=== PATIENT | female | born 1985 | race American Indian/Alaskan Native ===

== ENCOUNTER 2017-02-08 03:28 | Outpatient (CLI) | payer OTHER ==
[2017-02-08 04:51] VITALS: BP 125/69
[2017-02-08 06:28] LABS: Hematocrit 37.3 % (30.3-42.9); Mean Corpuscular HGB Conc 32 % (30-34); Mean Corpuscular Hemoglobin 31 pg (28-32); Mean Corpuscular Volume 96 fl (79-97); Platelet Count 170 K/mm3 (140-440); Red Blood Count 3.89 M/mm3 (3.65-5.03); Red Cell Distribution Width 15.6 % (13.2-15.2); White Blood Count 9.6 K/mm3 (4.5-11.0)
[2017-02-08 06:36] LABS: Alanine Aminotransferase 21 units/L (7-56); Lactate Dehydrogenase 225 units/L (91-180); Uric Acid 5.2 mg/dL (3.5-7.6)
--- NOTE | 2017-02-08 10:33 | Ultrasound Report ---
BIOPHYSICAL PROFILE: 2 - breathing movements 2 - movements 2 - posture and tone 2 - Qualitative amniotic fluid volume 8 - TOTAL SCORE OF POSSIBLE 8 Heart Rate (bpm) 139 Estimated age 39 weeks 5 days.
== END 2017-02-08 07:08 | disposition home or self-care (01) ==
LOC: TRG 03:28
PROVIDERS: ATTEND Obstetrics & Gynecology
DX: O62.9 Abnormality of forces of labor, unspecified (principal); Z3A.39 39 weeks gestation of pregnancy
CPT/HCPCS: 36415; 76819; 82565; 83615; 84450; 84460; 84550; 85027

== ENCOUNTER 2017-02-15 03:05 | Inpatient (IN) | payer OTHER ==
[2017-02-15] MEDS ORDERED: ZOFRAN IV PRN (03:53)
[2017-02-15] MEDS ORDERED: BRETHINE SUB-Q PRN (03:53)
[2017-02-15] MEDS ORDERED: XYLOCAINE 2% INFILTRATI ONE (03:53)
[2017-02-15] MEDS ORDERED: MINERAL OIL PO PRN (03:53)
[2017-02-15] MEDS ORDERED: ePHEDrine SULFATE IV PRN (03:53)
[2017-02-15] MEDS ORDERED: SUBLIMAZE IV PRN (03:53)
--- NOTE | 2017-02-15 03:53 | History and Physical Report ---
History of Present Illness Date of examination: 02/15/17 (pt presents @ term in active labor) Date of admission: 02/15/17 03:38 History of present illness: EDC Confirmation: 02/10/2017 Gestational Age: 7 3/7 weeks Past History : 2 Term Births: 1 Living Children: 1 # 1 Delivery date: 2006 Weeks Gestation: 37 Delivery type: Delivery location: [facility] Sex: Female weight: 6-7 Comments: no complication Past Medical History: Negative Past Medical History Past Surgical History: Negative Past Surgical History Family History Summary: Other family member - Has No Family History of Uterine Cancer - Entered On: 08/21 Other family member - Has No Family History of Stomach Cancer - Entered On: 08/21 Other family member - Has No Family History of Small Bowel Cancer - Entered On: 08/21/2016 Other family member - Has No Family History of Pancreatic Cancer - Entered On: Other family member - Has No Family History of Ovarvian Cancer - Entered On: Other family member - Has No Family History of Kidney/Urinary Tract Cancer - Entered On: 08/21/2016 Other family member - Has No Family History of DVT/PE on OCP - Entered On: 2016 Other family member - Has No Family History of Colon Cancer - Entered On: 2016 Other family member - Has No Family History of Breast Cancer - Entered On: 2016 Other family member - Has No Family History of Brain Cancer - Entered On: 2016 Other family member - Has No Family History of Biliary Tract Cancer - Entered On : 08/21/2016 General Comments - FH: MGM bone cancer Social History: Patient is single Smoking History: Patient has never smoked. 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 Infection History Hx of STD: none Rash, Viral, or Febrile illness since last LMP? no Varicella/Chicken Pox Status: Previous Disease TB Risk: no Genetic History Congenital Heart Defect: Mom: no Dad: no Onelia Disease: Mom: no Dad: no Thalassemia Mom: no Dad: no Neural Tube Defect Mom: no Dad: no Down's Syndrome Mom: no Dad: no Nestor-Sachs Mom: no Dad: no Sickle Cell Disease/Trait Mom: no Dad: no Hemophilia Mom: no Dad: no Muscular Dystrophy Mom: no Dad: no Cystic Fibrosis Mom: no Dad: no [place] Chorea Mom: no Dad: no Mental Retardation Mom: no Dad: no Fragile X Mom: no Dad: no Other Genetic/Chromosomal Disorder Mom: no Dad: no Child w/other defect Mom: no Dad: no Enviromental Exposures Enviromental Exposures Reviewed Xray Exposure: no Medication, drug, or alcohol use since LMP: no Chemical/Other Exposure: no Exposure to Cat Liter: yes Hx of Parvovirus (Fifth Disease): no 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 Denies nausea, vomiting, headache, swelling of legs, abdominal pain, vaginal discharge, vaginal bleeding and contractions. Denies vaginal discharge, incontinence, dysuria, hematuria, urinary frequency, amenorrhea, menorrhagia, abnormal vaginal bleeding, pelvic pain, genital sores, decreased libido, painful periods, painful sex, urinary urgency, hot flashes, vaginal dryness, vaginal itching and vaginal odor. CV Denies chest pains, palpitations, syncope, dyspnea on exertion, orthopnea, PND and peripheral edema. Resp Denies cough, dyspnea at rest, excessive sputum, hemoptysis, wheezing and pleurisy. GI Denies nausea, vomiting, diarrhea, constipation, change in bowel habits, abdominal pain, melena, hematochezia, jaundice, gas/bloating, indigestion/ heartburn, dysphagia and odynophagia. Endo Denies cold intolerance, heat intolerance, polydipsia, polyphagia, polyuria and unusual weight change. Breast Denies left breast lump, right breast lump, nipple discharge, bloody discharge from nipple, breast pain, abnormal mammogram and breast enlargement. MS Denies back pain, joint pain, joint swelling, muscle cramps, muscle weakness, stiffness, arthritis, sciatica, restless legs, leg pain at night and leg pain with exertion. Derm Denies rash, itching, dryness and suspicious lesions. Neuro Denies paralysis, paresthesias, headache, seizures, tremors, vertigo, transient blindness, frequent falls, frequent headaches and difficulty walking. Psych Denies depression, anxiety, irritability and mood swings. Eyes Denies blurring, diplopia, irritation, discharge, vision loss, eye pain and photophobia. ENT Denies earache, ear discharge, tinnitus, decreased hearing, nasal congestion, nosebleeds, sore throat and hoarseness. Allergy Denies urticaria, allergic rash, hay fever and recurrent infections. Heme Denies abnormal bruising, bleeding and enlarged lymph nodes. 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 Vulva/Vagina: No lesions, normal BUS, normal rugae Cervix: No lesions; no cervical motion tenderness Uterus: normal size and position, midline, mobile Adnexae: no masses or tenderness Rectovaginal: no masses or tenderness Past History - Obstetrical History Expected Date of Delivery: 02/10/17 Actual Gestation: 40 Week(s) 5 Day(s) : 2 Para: 1 Hx # Term Pregnancies: 1 Number of Living Children: 1 Medications and Allergies Allergies Allergy/AdvReac Type Severity Reaction Status Date / Time No Known Allergies Allergy Unverified 02/08/17 03:47 - Vital Signs Vital signs: Vital Signs Pulse BP Pulse Ox 82 138/97 96 02/15/17 03:23 02/15/17 03:23 02/15/17 03:23 Temp Pulse Resp BP Pulse Ox 82 138/97 96 02/15/17 03:23 02/15/17 03:02/15/17 03:23 - Physical Exam Breasts: Positive: deferred Cardiovascular: Regular rate, Normal S1, Normal S2 Lungs: Positive: Normal air movement Abdomen: Positive: normal appearance, soft, normal bowel sounds. Negative: distention, tenderness Genitourinary (Female): Positive: normal external genitalia Vulva: both: normal Vagina: Positive: normal moisture. Negative: discharge Cervix: Negative: lesion, discharge Uterus: Positive: normal size, normal contour Adnexa: both: normal Anus/Rectum: Positive: normal perianal skin, heme negative. Negative: rectal mass, hemorrhoids Extremities: Positive: edema Deep Tendon Reflex Grade: Normal +2 - Obstetrical FHR: category 1 Uterine Contraction Monitor Mode: External Cervical Dilatation: 5 (BBOW) Cervical Effacement Percentage: 70 station: -1 Uterine Contraction Pattern: Regular Uterine Tone Measurement Phase: Resting Uterine Contraction Intensity: Moderate Results All other labs normal. ! Strep Gp B PASTORA Negative HBsAg Screen Negative Negative *1 Rubella Antibodies, IgG 1.10 index Immune >0.99 *2 ABO Grouping AB *3 Rh Factor Positive *4 Please note: Prior records for this patient's ABO / Rh type are not available for additional verification. Antibody Screen Negative Negative *5 RPR Non Reactive Non Reactive *6 WBC 10.0 x10E3/uL 3.4-10.8 *7 RBC 4.10 x10E6/uL 3.77-5.28 *8 Hemoglobin 12.2 g/dL 11.1-15.9 *9 Hematocrit 37.8 % 34.0-46.6 *10 MCV 92 fL 79-97 *11 MCH 29.8 pg 26.6-33.0 *12 MCHC 32.3 g/dL 31.5-35.7 *13 RDW 14.1 % 12.3-15.4 *14 Platelets 266 x10E3/uL 150-379 *15 Neutrophils 60 % *16 Lymphs 29 % *17 Monocytes 10 % *18 Eos 1 % *19 Basos 0 % *20 ! Immature Cells <No Reported Value> *21 Neutrophils (Absolute) 5.9 x10E3/uL 1.4-7.0 *22 Lymphs (Absolute) 2.9 x10E3/uL 0.7-3.1 *23 Monocytes(Absolute) [H] 1.0 x10E3/uL 0.1-0.9 *24 Eos (Absolute) 0.1 x10E3/uL 0.0-0.4 *25 Baso (Absolute) 0.0 x10E3/uL 0.0-0.2 *26 ! Immature Granulocytes 0 % *27 ! Immature Grans (Abs) 0.0 x10E3/uL 0.0-0.1 *28 ! NRBC <No Reported Value> *29 Hematology Comments: <No Reported Value> *30 Tests: (2) HB Solu + Rflx [facility] ([id number]) Hemoglobin (Hgb) Solubility Negative Negative *31 Tests: (3) Panel 952930 ([id number]) HIV Screen 4th Generation wRfx Non Reactive Non Reactive *32 Tests: (4) HCV Ab w/Rflx to Verification (915605) ! HCV Ab <0.1 s/co ratio 0.0-0.9 *33 Tests: (5) Comment: ([id number]) ! Comment: SPRCS *34 Non reactive HCV antibody screen is consistent with no HCV infection, unless recent infection is suspected or other evidence exists to indicate HCV infection. Tests: (6) Urine Culture, Routine (109081) Urine Culture, Routine Final report *35 Tests: (7) Result ([id number]) ! Result 1 No growth *36 Assessment and Plan 31yo @ 40 weeks in active labor GBS negative Orders in EMR
[2017-02-15] MEDS ORDERED: LACTATED RINGERS 1,000 ML IV SCH (04:00)
[2017-02-15] MEDS ORDERED: PITOCin/NS 30 UNIT/500ML 30 UNITS/500 ML BAG IV SCH (04:00)
[2017-02-15 04:21] LABS: Hematocrit 38.3 % (30.3-42.9); Hemoglobin 12.7 gm/dl (10.1-14.3); Mean Corpuscular HGB Conc 33 % (30-34); Mean Corpuscular Hemoglobin 31 pg (28-32); Mean Corpuscular Volume 95 fl (79-97); Platelet Count 155 K/mm3 (140-440); Red Blood Count 4.04 M/mm3 (3.65-5.03); Red Cell Distribution Width 15.2 % (13.2-15.2); White Blood Count 9.6 K/mm3 (4.5-11.0)
[2017-02-15] MEDS: PITOCin/NS 20 UNIT/1000ML DRIP 20 UNITS/1,000 ML BAG IV SCH ×2 (05:06→05:54)
[2017-02-15] MEDS ORDERED: PHENERGAN PO PRN (05:39)
[2017-02-15] MEDS ORDERED: DULCOLAX PR PRN (05:39)
[2017-02-15] MEDS ORDERED: TUCKS PAD TP PRN (05:39)
[2017-02-15] MEDS ORDERED: TYLENOL PO PRN (05:39)
[2017-02-15] MEDS ORDERED: PERCOCET 5/325 PO PRN (05:39)
[2017-02-15] MEDS ORDERED: NORCO 5/325 PO PRN (05:39)
[2017-02-15] MEDS ORDERED: LANSINOH TP PRN (05:39)
[2017-02-15] MEDS ORDERED: MILK OF MAGNESIA PO PRN (05:39)
[2017-02-15] MEDS ORDERED: BENADRYL PO PRN (05:39)
[2017-02-15] MEDS ORDERED: SODIUM CHLORIDE FLUSH SYRINGE 10 ML IV PRN (06:00)
--- NOTE | 2017-02-15 06:05 | Procedure Note ---
OB Delivery Note - Delivery Date of Delivery: 02/15/17 [employer]: MILEY FORTUNE Estimated blood loss: 300cc - Vaginal Delivery presentation: vertex Delivery position: OA Intrapartum events: meconium (terminal) Delivery induction: none Delivery augmentation: pitocin Delivery monitor: external FHT, external uterine Route of delivery: Delivery placenta: spontaneous Delivery cord: 3 umbilical vessels Episiotomy: none Delivery laceration: 1st degree (no repair) Anesthesia: none Delivery comments: live born female over intact perineum Baby to mom's abdomen skin to skin Cord blood obtaine Placenta and membrane del complete and intact, 3 vessel cord. Pit IVFs 8/9, EBL 300, Wgt 6-5 Mom and baby remain LDR stable. - Infant A at 1 minute: 8 at 5 minutes: 9 Infant Gender: Female (wgt 6-5)
[2017-02-15 07:20] LABS: Alanine Aminotransferase 20 units/L (7-56)
[2017-02-15 07:24] LABS: Hematocrit 35.8 % (30.3-42.9); Hemoglobin 11.9 gm/dl (10.1-14.3)
[2017-02-15 07:33] LABS: Bilirubin,Urine NEG (Negative); Blood,Urine MOD (Negative); Ketones,Urine NEG (Negative); Leukocyte Esterase,Urine NEG (Negative); Mucus,Urine FEW /HPF; Nitrite,Urine NEG (Negative); Urobilinogen,Urine < 2.0 mg/dL (<2.0)
[2017-02-15] MEDS: MOTRIN PO SCH (08:11)
[2017-02-15 09:04] LABS: Lactate Dehydrogenase 250 units/L (91-180); Uric Acid 4.7 mg/dL (3.5-7.6)
[2017-02-15] MEDS ORDERED: PRENATAL VITAMIN PO SCH (10:00)
[2017-02-15] MEDS ORDERED: DERMOPLAST TP PRN (19:12)
[2017-02-15] MEDS: COLACE PO SCH (22:17)
[2017-02-16] MEDS: MOTRIN PO SCH ×3 (00:31→12:50)
[2017-02-16] MEDS ORDERED: M-M-R II VACCINE SUB-Q ONE (05:39)
[2017-02-16] MEDS ORDERED: BOOSTRIX IM ONE (06:00)
--- NOTE | 2017-02-16 08:21 | Progress Note ---
Assessment and Plan patient doing well, no complaints. lochia scant, H&H 11.9/35.8, VSSAF (b/p 130- 140/70's, pre-e labs NL), breast feeding without concern. plan for d/c home today with 1 week f/u in office for b/p check. - Patient Problems (1) Spontaneous vaginal delivery Current Visit: Yes Status: Acute Subjective - Subjective Date of service: 02/16/17 Principal diagnosis: day #1 s/p Patient reports: appetite normal, voiding normally, pain well controlled, ambulating normally, no dizzy ambulation, no nauseated [place]: doing well, nursing well Objective - Vital Signs Latest vital signs: Vital Signs Temp Pulse Resp BP 02/16/17 00:25 98.4 F 88 18 133/72 02/15/17 16:50 98.6 F 90 18 136/77 02/15/17 12:40 98.6 F 83 19 143/78 Intake and Output 02/15/17 02/16/17 02/16/17 22:59 06:59 14:59 Intake Total 360 240 Balance 360 240 Intake: Oral 360 240 Other: Total, Intake Amount 240 240 # Voids Void 1 1 - Exam Breasts: Present: normal, Cardiovascular: Present: Regular rate Lungs: Present: Clear to auscultation, Normal air movement Abdomen: Present: normal appearance, soft, normal bowel sounds Vulva: both: laceration/episiotomy (well approximated, 1st degree not repaired) Uterus: Present: normal, firm, fundal height at umbilicus Extremities: Present: normal Deep Tendon Reflex Grade: Normal +2 - Labs Labs: Abnormal lab results 02/15/17 Range/Units 03:30 Lactate Dehydrogenase 250 H (91-180) units/L
--- NOTE | 2017-02-16 08:27 | Discharge Summary ---
Providers - Providers Date of Admission: 02/15/17 03:38 Date of discharge: 02/16/17 (desires d/c home today) Attending physician: MICHELLE BARRIOS Primary care physician: MICHELLE BARRIOS Hospitalization Reason for admission: active labor Delivery: Episiotomy: none Laceration: 1st degree Incision: normal, dry, intact Other procedures: none complications: none Discharge diagnosis: IUP at term delivered [place] baby: female Hospital course: uncomplicated vaginal Condition at discharge: Good Disposition: DC-01 TO HOME OR SELFCARE - Discharge Diagnoses (1) Spontaneous vaginal delivery Status: Acute Plan - Provider Discharge Summary Activity: routine, no sex for 6 weeks, no heavy lifting 4 weeks, no strenuous exercise Diet: routine Instructions: routine Additional instructions: [] Smoking cessation referral if applicable(refer to patient education folder for contact #) [] Refer to [facility]'s [facility] Booklet Call your doctor immediately for: * Fever > 100.5 * Heavy vaginal bleeding ( >1 pad per hour) * Severe persistent headache * Shortness of breath * Reddened, hot, painful area to leg or breast * Drainage or odor from incision. * Keep incision clean and dry at all times and follow doctor's instructions regarding bathing/showering - Follow up plan Follow up: MICHELLE BARRIOS MD [Primary Care Provider] - 7 Days (Congratulations! Please call [phone] to schedule a blood pressure check in 1 week and your visit in 4 weeks. Call for any questions or concerns.)
[2017-02-16] MEDS: COLACE PO SCH (10:45)
[2017-02-16 16:02] VITALS: BP 136/82
== END 2017-02-16 16:05 | disposition home or self-care (01) | DRG 775 ==
LOC: TRG 03:05 → LD 03:06 → TRG 03:37 → LD 03:38 → OB 07:50
PROVIDERS: ADMIT Obstetrics & Gynecology; ATTEND Obstetrics & Gynecology
PROC: 10E0XZZ Delivery of Products of Conception, External Approach (ICD-10-PCS; principal; 2017-02-15)
PROC: 3E0234Z Introduction of Serum, Toxoid and Vaccine into Muscle, Percutaneous Approach (ICD-10-PCS; 2017-02-16)
DX: O77.0 Labor and delivery complicated by meconium in amniotic fluid (principal); Z37.0 Single live birth; Z3A.40 40 weeks gestation of pregnancy; O70.0 First degree perineal laceration during delivery; Z80.8 Family history of malignant neoplasm of other organs or systems; Z23 Encounter for immunization
CPT/HCPCS: 36415; 81001; 82565; 83615; 84450; 84460; 84550; 85014; 85018; 85027; 86592; 86850; 86900; 86901; 90707; 99211; A6250; G0463; J2405; J2590; J3010; J7120